=== PATIENT | female | born 1960 | race Caucasian/White ===

== ENCOUNTER 2017-01-19 07:39 | Emergency (ER) | payer OTHER ==
[~2017-01-19] VITALS: Ht 152.4 cm; Wt 51.5 kg
[~2017-01-19 07:39] MED LIST: CALC1TAB PO; LIFI1DRO EACHEYE; LORA10TA62 PO; MULT-658 PO
[2017-01-19] MEDS ORDERED: DIAZEPAM 5 MG/ML, 2ML ONE (09:33)
[2017-01-19] MEDS ORDERED: DIAZEPAM 5 MG/ML, 2ML IM PRN (10:00)
[2017-01-19 11:03] LABS: ASPARTATE AMINO TRANSFERASE 36 U/L (15-37); BLOOD UREA NITROGEN 14 mg/dL (7-18)
[2017-01-19 11:07] LABS: IS PT STATUS REG ER OR PRE ER? YES
[2017-01-19] MEDS ORDERED: LORazepam 2 MG/ML, 1ML ONE (11:17)
[2017-01-19] MEDS ORDERED: LORazepam 2 MG/ML, 1ML IVPush ONE (11:30)
[2017-01-19] MEDS ORDERED: GADOBUTROL 7.5 MMOL/7.5 ML PFS ONE (11:42)
[2017-01-19 13:30] VITALS: BP 112/67
== END 2017-01-19 13:56 | disposition home or self-care (01) ==
LOC: ED 08:49
DX: R42 Dizziness and giddiness (principal)
CPT/HCPCS: 36415; 70553; 80053; 81003; 84484; 85025; 93005; 96372; 96374; 99285; A9585; J2060; J3360

== ENCOUNTER → 2017-09-30 | Outpatient (CLI) | payer OTHER | END | disposition home or self-care (01) | LOC: CFH 10:52 | PROVIDERS: ATTEND Physician Assistant | DX: Z12.31 Encounter for screening mammogram for malignant neoplasm of breast (principal) | CPT/HCPCS: 77067 ==

== ENCOUNTER 2020-09-16 11:02 | Outpatient (CLI) | payer OTHER ==
[~2020-09-16 11:02] MED LIST changes: +LORA-59 PO; -LORA10TA62 PO
== END 2020-09-16 23:59 | disposition home or self-care (01) ==
LOC: CFH 11:02
PROVIDERS: ATTEND Nurse Practitioner Family
DX: Z12.31 Encounter for screening mammogram for malignant neoplasm of breast (principal)
CPT/HCPCS: 77067